=== PATIENT | male | born 1990 | race Caucasian/White ===

== ENCOUNTER 2021-07-21 16:02 | Emergency (ER) | payer OTHER ==
[2021-07-21 18:22] LABS: BASOPHIL 0.1 % (0-2); EOSINOPHIL 0.1 % (0-5); HCT 48.8 % (42.0-52.0); HGB 16.3 g/dl (13.2-18.0); LYMPHOCYTE 5.2 % (15-48); MCH 29.6 pg (25.0-31.0); MCHC 33.4 g/dL (32.0-36.0); MCV 88.7 fL (78.0-100.0); MONOCYTE 4.8 % (0-12); NEUTROPHIL 89.3 % (41-80); NRBC 0; PLT 263 K/uL (150-400); RDW 13.2 % (11.5-14.0); WBC 16.6 K/uL (4.0-10.5)
[2021-07-21 18:33] LABS: ALBUMIN 4.8 g/dL (3.4-5.0); BILIRUBIN - TOTAL 0.7 mg/dL (0.2-1.0); BUN/CREAT RATIO (CALC) 14.6 RATIO; CREATININE 1.03 mg/dL (0.67-1.17); GLOBULIN (CALCULATION) 3.9 g/dL; POTASSIUM 3.8 mmol/L (3.5-5.1); TOTAL PROTEIN 8.7 g/dL (6.4-8.2)
[2021-07-21 19:10] LABS: CORONAVIRUS 2019 SARS-COV-2 NEGATIVE (NEGATIVE); INFLUENZA A NAA NEGATIVE (NEGATIVE)
[2021-07-21] MEDS ORDERED: ONDANSETRON ODT4 MG PO (19:34)
[2021-07-21] MEDS ORDERED: PHENERGAN25 M1 PO (19:34)
== END 2021-07-21 19:45 | disposition home or self-care (01) ==
LOC: FER 16:02
PROVIDERS: Emergency Medicine
DX: R10.13 Epigastric pain (principal); R11.2 Nausea with vomiting, unspecified; F17.200 Nicotine dependence, unspecified, uncomplicated; Z28.310 Unvaccinated for COVID-19; Z20.822 Contact with and (suspected) exposure to COVID-19
CPT/HCPCS: 36415; 80053; 83690; 85025; J2405; J7030; U0002